=== PATIENT | male | born 1925 | race Caucasian/White ===

== ENCOUNTER 2016-08-08 09:27 | Day surgery (SDC) | payer MEDICARE ==
[~2016-08-08] VITALS: Ht 185.4 cm; Wt 73.0 kg
[~2016-08-08 09:27] MED LIST: 0.9% Sodium Chloride 1,000 ML IV PRN; ATEN100T PO; FINA5TAB9 PO; LOVA20TA PO; NAPR220C11 PO; ROSE HIPS PO; Sodium Chloride LOK Flush 10 mL Syringe IV PRN; VIT C PO; ZYL100 PO; fentaNYL-PF 50 mCg/mL 2 mL Inj IVPUSH PRN
[2016-08-08 10:30] LABS: BASOPHILS % (AUTO) 0.3 % (0-3); EOSINOPHILS % (AUTO) 0.9 % (0-5); MONOCYTES % (AUTO) 10.8 % (4-12); Mean Corpuscular Hemoglobin 32.2 pg (27.0-35.0); Mean Corpuscular Volume 94.6 fL (81-100); NEUTROPHILS % (AUTO) 64.1 % (40-74); Platelet Count 143 bil/L (150-400)
[2016-08-08 10:37] VITALS: BP 123/73; PULSE 53; RESP 16; O2SAT 97
[2016-08-08] MEDS ORDERED: POTA15TA9 PO (10:41)
--- NOTE | 2016-08-08 11:55 | PCM.ENDCOL ---
Colonoscopy Date of Service: Aug 08, 2016 Physician Rizwan Mackey MD Pre Procedure Diagnosis: Diarrhea Post Procedure Dx & Findings: Normal terminal ileum normal colon Procedure Colonoscopy Prep adequate Withdrawal time 12 minutes After unremarkable rectal examination the Olympus video colonoscope was inserted patient's anal canal and was advanced to cecum. Landmarks were identified including the ileocecal valve and appendiceal orifice. Scope was withdrawn systematically. Visualized colonic mucosa showed healthy shiny mucosa with normal healthy-appearing vasculature. Tortuous colon. We were able to get into few centimeters of the terminal ileum. Patient had normal dual structures without any ulcer or mass erosions. In the rectum retroflexion was done which showed hemorrhoids. Anal canal was inspected carefully on the way out and hemorrhoids noted. Impression Normal TI but were only able to get in few centimeters of the terminal ileum Normal colon status post random biopsies from the cecum to the rectum. Hemorrhoids Recommendation Follow up in GI clinic to go over the biopsies and determine the fecal fat. Presedation Assessment Risks and Benefits Informed consent was obtained from the patient after all risks and benefits including but not limited to drug reaction, infection, pain, bleeding, perforation, as well as alternatives were discussed. Patient monitoring Continuous pulse oximetry, cardiac monitoring, blood pressure monitoring, IV access, and oxygen at 2L per nasal cannula. Periprocedural Fentanyl: Fentanyl 25mcg Midazolam: Midazolam 1mg Incrementally Complications There were no periprocedural complications identified. Post Procedure Plan Post Procedure Recommendations 1. Restrict activities today. 2. Resume normal activities in the morning. 3. Resume medications. 4. Patient informed of normal post procedure side effects as bloating, drowsiness, blood streaking in the stool. 5. average risk CRCS. If colon polyps come back as: -Hyperplastic- can repeat colonoscopy in 10 years -Tubular adenoma- repeat colonoscopy in 5 years -Tubulovillous/villous adenoma- repeat colonoscopy in 3 years -If any dysplasia- return to clinic as soon as possible 6. Please don't hesitate to call me with any questions. Rizwan Mackey MD Aug 08, 2016 11:55
[2016-08-08 11:57] VITALS: BP 134/66; PULSE 49; RESP 15; O2SAT 100
[2016-08-08 12:07] VITALS: BP 117/68; PULSE 50; RESP 15; O2SAT 96
[2016-08-08 12:17] VITALS: BP 116/66; PULSE 50; RESP 15; O2SAT 98
--- NOTE | 2016-08-09 13:01 | PATH ---
SURGICAL PATHOLOGY Attending Physician:Rizwan Mackey M.D. CASE STATUS: Signed Out PATIENT NAME: MERVIN LEA PID: [id number] : 1925 DATE COLLECTED:08/08/2016 20:09 SPECIMEN: Colon, Biopsy CLINICAL HISTORY: 1). RANDOM COLON BIOPSIES FINAL DIAGNOSIS: 1.RANDOM COLON BIOPSIES: NORMAL COLONIC MUCOSA. No significant inflammation identified. No evidence of dysplasia or malignancy. ICD10 CODE R19.7 GROSS DESCRIPTION: The specimen is received in one formalin filled container labeled with the patient's name, sublabeled "random colon" and consists of multiple portions of tissue which aggregate to 0.4 x 0.4 x 0.3 CM. The specimen is entirely submitted in one cassette. 08/08/2016 [facility] MICRO DESCRIPTION: See diagnosis. ICD-9 CODES: CPT CODES: 1: 44731 Electronically Signed Out Michael Montes MD [facility] [address], [place] [address] Technical component performed at [facility], [address] [place] [address] Ave[address], [place], [address]
== END 2016-08-08 23:59 | disposition home or self-care (01) ==
LOC: END 09:27
PROVIDERS: ATTEND Internal Medicine
DX: R19.7 Diarrhea, unspecified (principal); K64.8 Other hemorrhoids; I25.10 Atherosclerotic heart disease of native coronary artery without angina pectoris; I10 Essential (primary) hypertension; E78.2 Mixed hyperlipidemia; D46.9 Myelodysplastic syndrome, unspecified; M10.9 Gout, unspecified; Z85.46 Personal history of malignant neoplasm of prostate; Z87.442 Personal history of urinary calculi
CPT/HCPCS: 36415; 45380; 85025; 88305; 99153; G0500; J2250; J3010; J7030